=== PATIENT | female | born 1985 | race Hispanic/Latino ===

== ENCOUNTER 2016-09-11 11:21 | Emergency (ER) | payer OTHER ==
[2016-09-11 11:31] VITALS: BP 134/82; PULSE 80; TEMP 99; O2SAT 100
[2016-09-11 11:46] VITALS: RESP 16
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
[2016-09-11] MEDS ORDERED: Naproxen 500 MG TAB PO STA (13:13)
[2016-09-11] MEDS ORDERED: Naproxen 500 MG TAB PO ONE (13:14)
--- NOTE | 2016-09-11 13:23 | RAD ---
HISTORY: BACK INJURY COMPARISON: None available. FINDINGS: BONES: Alignment maintained. No acute displaced fracture identified. Scattered tiny anterior osteophytes. DISC SPACES: Unremarkable. SOFT TISSUES: Unremarkable. OTHER FINDINGS: None. IMPRESSION: No acute displaced fracture or subluxation identified.
--- NOTE | 2016-09-11 13:24 | RAD ---
PROCEDURE: Radiographs of the Lumbar Spine. HISTORY: BACK INJURY COMPARISON: None available. FINDINGS: BONES: Alignment appears satisfactory. No listhesis. No acute displaced fracture identified. DISC SPACES: Unremarkable. OTHER FINDINGS: None. IMPRESSION: No acute displaced fracture or subluxation identified.
== END 2016-09-11 14:01 | disposition home or self-care (01) ==
LOC: H.ER 11:21
DX: S39.012A Strain of muscle, fascia and tendon of lower back, initial encounter (principal); V43.52XA Car driver injured in collision with other type car in traffic accident, initial encounter; Y92.410 Unspecified street and highway as the place of occurrence of the external cause